=== PATIENT | female | born 2000 ===

== ENCOUNTER 2024-04-16 06:25 | Inpatient (IN) | payer OTHER ==
[2024-04-16 08:26] VITALS: BMI 33.8
[2024-04-16] MEDS: ELECTROLYTE-148 SOLN 1,000 ML IV SCH (09:00)
[2024-04-16 09:34] LABS: BASO % 0.6 % (0-2.0); EOS % 0.5 % (0-4.5); HEMATOCRIT 33.9 % (32.4-45.2); HEMOGLOBIN 11.5 GM/dL (10.7-15.3); LYMPH % 18.6 % (8-40); MCH 30.1 pg (25.7-33.7); MCHC 33.8 g/dl (32.0-36.0); MEAN CELL VOLUME 88.9 fl (80-96); MEAN PLT VOLUME 9.7 fl (7.5-11.1); MONO % 8.4 % (3.8-10.2); NEUT % 71.9 % (42.8-82.8); PLATELET COUNT 210 10^3/uL (134-434); RBC 3.82 M/mm3 (3.60-5.2); RDW 14.1 % (11.6-15.6)
[2024-04-16 09:37] LABS: INR 0.87 (0.83-1.09); PROTHROMBIN TIME (PATIENT) 10.1 SEC (9.7-13.0)
[2024-04-16 09:40] LABS: ACTIVATED PTT 26.5 SECONDS (25.2-36.5)
[2024-04-16] MEDS ORDERED: OXYTOCIN 30 UNITS in 0.9% NS 30 UNIT/500 ML INFUS.BAG IVPB ONE ×2 (09:46→22:35)
[2024-04-16] MEDS: OXYTOCIN 30 UNITS in 0.9% NS 30 UNIT/500 ML INFUS.BAG IVPB SCH (10:00)
[2024-04-16 10:09] LABS: CALCIUM 9.4 mg/dL (8.5-10.1)
[2024-04-16 10:10] LABS: BLOOD UREA NITROGEN 11.4 mg/dL (7-18)
[2024-04-16 10:13] LABS: CREATININE 0.5 mg/dL (0.55-1.3)
[2024-04-16] MEDS ORDERED: PROMETHAZINE HCL 25 MG/1 ML VIAL ONE (13:41)
[2024-04-16] MEDS ORDERED: BUTORPHANOL TARTRATE 2 MG/ML VIAL ONE (13:41)
[2024-04-16] MEDS: BUTORPHANOL TARTRATE 2 MG/ML VIAL IVPB ONE (13:55)
[2024-04-16] MEDS: PROMETHAZINE HCL 25 MG/1 ML VIAL IVPB ONE (13:55)
[2024-04-16] MEDS ORDERED: BETAMET ACET/BETAMET NA PH 30 MG/5 ML VIAL ONE (14:41)
[2024-04-16] MEDS ORDERED: FENTANYL/BUPIVACAINE/NS/PF - PCEA - 50 ML DISP.SYRIN EP ONE (19:00)
[2024-04-16] MEDS ORDERED: NALOXONE HCL 0.4 MG/ML VIAL IVPUSH PRN (19:11)
[2024-04-16] MEDS: FENTANYL/BUPIVACAINE/NS/PF - PCEA - 50 ML DISP.SYRIN EP SCH (19:30)
[2024-04-16] MEDS ORDERED: METHYLERGONOVINE MALEATE 0.2 MG/1 ML AMP IM PRN (22:31)
[2024-04-16] MEDS ORDERED: LIDO 2%/EPI 1:200000 PRESRVFRE (20 ML SDVIAL) ONE (22:35)
[2024-04-16] MEDS ORDERED: FENTANYL CITRATE/PF 50 MCG/ML VIAL ONE (22:35)
[2024-04-16] MEDS ORDERED: ceFAZolin SODIUM 1 GM VIAL ONE (22:39)
[2024-04-16] MEDS ORDERED: ONDANSETRON 4 MG/2 ML VIAL ONE (22:39)
[2024-04-16] MEDS ORDERED: METOCLOPRAMIDE HCL INJECTION 10 MG/2 ML VIAL ONE (22:39)
[2024-04-16] MEDS ORDERED: AZITHROMYCIN IVPB 500 MG/250 ML BAG IVPB ONE (22:56)
[2024-04-16 23:17] LABS: CORD BASE EXCESS -3.5 mmol/L (0-2); CORD HCO3 21.9 mmHg (20-29); CORD HCO3 22.2 mmHg (20-29); CORD PCO2 42.3 mmHg (30-78); CORD pH 7.277 (7.14-7.44); CORD pH 7.337 (7.14-7.44)
[2024-04-16] MEDS ORDERED: KETOROLAC TROMETHAMINE 30 MG/1 ML VIAL ONE (23:28)
[2024-04-16] MEDS ORDERED: ONDANSETRON 4 MG/2 ML VIAL IVPUSH PRN (23:52)
[2024-04-17] MEDS ORDERED: OXYTOCIN 20 UNITS in 0.9% NS 20 UNIT/1,000 ML INFUS.BAG IV ONE ×2 (00:53→10:16)
[2024-04-17] MEDS: OXYTOCIN 20 UNITS in 0.9% NS 20 UNIT/1,000 ML INFUS.BAG IV SCH (00:55)
[2024-04-17] MEDS: IBUPROFEN (CALDOLOR) 800 MG/200 ML PREMIX BAGS IVPB PRN (01:45)
[2024-04-17] MEDS ORDERED: IBUPROFEN 800 MG/8 ML IJ IVPB ONE (01:49)
[2024-04-17] MEDS ORDERED: CEFAZOLIN SODIUM 2 GM VIAL ONE (02:34)
[2024-04-17] MEDS: CEFAZOLIN SODIUM 2 GM in DEXTROSE 5%-WATER 100 ML IVPB SCH (02:35)
[2024-04-17] MEDS ORDERED: SODIUM CHLORIDE 100 ML IVPB ONE (02:35)
[2024-04-17] MEDS: PROMETHAZINE HCL 25 MG/1 ML VIAL IVPB ONE (06:18)
[2024-04-17] MEDS: BUTORPHANOL TARTRATE 2 MG/ML VIAL IVPB ONE (06:18)
[2024-04-17 08:38] LABS: BASO % 0.2 % (0-2.0); EOS % 0.1 % (0-4.5); HEMATOCRIT 29.7 % (32.4-45.2); HEMOGLOBIN 9.9 GM/dL (10.7-15.3); LYMPH % 13.9 % (8-40); MCH 29.7 pg (25.7-33.7); MCHC 33.3 g/dl (32.0-36.0); MEAN CELL VOLUME 89.3 fl (80-96); MEAN PLT VOLUME 9.5 fl (7.5-11.1); MONO % 8.8 % (3.8-10.2); PLATELET COUNT 186 10^3/uL (134-434); RBC 3.33 M/mm3 (3.60-5.2); RDW 14.1 % (11.6-15.6); WHITE BLOOD COUNT 10.1 K/mm3 (4.0-10.0)
[2024-04-17] MEDS: morphine SULFATE/PF 1 MG/2 ML (2cc Syringe - QUVA) EP ONE (09:10)
[2024-04-17] MEDS ORDERED: ceFAZolin SODIUM 1 GM VIAL ONE (10:06)
[2024-04-17] MEDS: ENOXAPARIN NA (PORCINE) 40 MG/0.4 ML DISP.SYRIN SQ SCH (10:26)
[2024-04-17] MEDS ORDERED: ACETAMINOPHEN 325 MG TABLET (FP) ONE (10:28)
[2024-04-17] MEDS ORDERED: oxyCODONE HCL 5 MG TABLET PO PRN ×2 (10:31)
[2024-04-17] MEDS: ACETAMINOPHEN 325 MG TABLET (FP) PO PRN (10:32)
[2024-04-17] MEDS ORDERED: FLU VACCINE (FLULAVAL) PF 45 MCG/0.5 ML SYRINGE 2024-2025 IM ONE (11:30)
[2024-04-17] MEDS ORDERED: DIPHTH,PERTUSS(ACELL),TET 0.5 ML DISP.SYRIN IM ONE (13:00)
[2024-04-17] MEDS: IBUPROFEN 600 MG TABLET (FP) PO PRN (19:43)
[2024-04-17] MEDS: SIMETHICONE 80 MG TAB.CHEW (FP) PO PRN (19:44)
[2024-04-17] MEDS ORDERED: BISACODYL 10 MG SUPP.RECT RC PRN (22:31)
[2024-04-18] MEDS: DIPHTH,PERTUSS(ACELL),TET 0.5 ML DISP.SYRIN IM ONE (10:08)
[2024-04-18] MEDS: FLU VACCINE (FLULAVAL) PF 45 MCG/0.5 ML SYRINGE 2024-2025 IM ONE (10:09)
[2024-04-19 07:36] LABS: BASO % 0.6 % (0-2.0); EOS % 1.5 % (0-4.5); HEMATOCRIT 29.1 % (32.4-45.2); HEMOGLOBIN 9.7 GM/dL (10.7-15.3); LYMPH % 15.5 % (8-40); MCH 29.6 pg (25.7-33.7); MCHC 33.3 g/dl (32.0-36.0); MEAN PLT VOLUME 9.1 fl (7.5-11.1); NEUT % 74.4 % (42.8-82.8); PLATELET COUNT 243 10^3/uL (134-434); RBC 3.27 M/mm3 (3.60-5.2); RDW 14.2 % (11.6-15.6); WHITE BLOOD COUNT 8.1 K/mm3 (4.0-10.0)
[2024-04-19 09:32] VITALS: BP 119/77; PULSE 76; RESP 18; TEMP 98.3
== END 2024-04-19 13:35 | disposition home or self-care (01) | DRG 540 ==
LOC: JLDR 06:25 → J3W 04-17 17:19
PROVIDERS: ADMIT Obstetrics & Gynecology; ATTEND Obstetrics & Gynecology
PROC: 10D00Z1 Extraction of Products of Conception, Low, Open Approach (ICD-10-PCS; principal; 2024-04-16)
DX: O62.1 Secondary uterine inertia (principal); O48.0 Post-term pregnancy; O36.63X0 Maternal care for excessive fetal growth, third trimester, not applicable or unspecified; Z3A.40 40 weeks gestation of pregnancy; Z37.0 Single live birth
CPT/HCPCS: 36415; 36600; 59025; 80048; 82803; 85025; 85610; 85730; 86780; 86850; 86900; 86901; 88307-TC; 90656; 90715; 94010; G0008